=== PATIENT | male | born 1985 | race Caucasian/White ===

== ENCOUNTER → 2022-06-29 | Outpatient (CLI) | payer OTHER | LOC: KOH-I 08:37 | DX: K21.9 Gastro-esophageal reflux disease without esophagitis (principal); R10.811 Right upper quadrant abdominal tenderness; K80.20 Calculus of gallbladder without cholecystitis without obstruction; K76.0 Fatty (change of) liver, not elsewhere classified | CPT/HCPCS: 76705 ==